=== PATIENT | male | born 1960 | race African-American/Black ===

== ENCOUNTER 2017-11-04 20:35 | Emergency (ER) | payer OTHER ==
[2017-11-04 22:38] LABS: URINE PH (Dip) POC 5.5 (5.0-8.5)
[2017-11-04 22:38] LABS: URINE BLOOD (Dip) POC 2+ (NEGATIVE); URINE GLUCOSE (Dip) POC Negative (NEGATIVE); URINE KETONES (Dip) POC Negative (NEGATIVE); URINE LEUKOCYTE EST (Dip) POC Negative (NEGATIVE); URINE NITRITE (Dip) POC Negative (NEGATIVE); URINE TOTAL PROTEIN POC Negative (NEGATIVE)
[2017-11-04] MEDS: AZITHROMYCIN 250 MG TAB PO (22:47)
[2017-11-04] MEDS: CEFTRIAXONE 250 MG INJ IM (22:48)
== END 2017-11-05 00:24 | disposition left against medical advice (07) ==
LOC: FTE 11-05 00:24
DX: N50.89 Other specified disorders of the male genital organs (principal)
CPT/HCPCS: 81003; 87591; 96372; 99284-25

== ENCOUNTER 2017-12-27 09:08 | Emergency (ER) | payer OTHER ==
[2017-12-27] MEDS: AZITHROMYCIN 250 MG TAB PO (09:39)
[2017-12-27] MEDS ORDERED: LIDOCAINE 1% (MDV) 20 ML INJ (09:43)
[2017-12-27] MEDS: CEFTRIAXONE 250 MG INJ IM (09:48)
[2017-12-27] MEDS: LIDOCAINE 1% (MDV) 10 ML INJ INJ (09:48)
[2017-12-27 09:55] LABS: ADD UMIC YES; UR ASCORBIC ACID NEGATIVE (NEGATIVE); UR BILIRUBIN (Dip) NEGATIVE (NEGATIVE); UR BLOOD (Dip) 1+ mg/dL (NEGATIVE); UR CLARITY CLEAR (CLEAR); UR COLOR YELLOW (YELLOW); UR GLUCOSE (Dip) NEGATIVE (NEGATIVE); UR KETONES (Dip) NEGATIVE (NEGATIVE); UR LEUKOCYTE ESTERASE (Dip) NEGATIVE Leu/ul (NEGATIVE); UR NITRITE (Dip) NEGATIVE (NEGATIVE); UR RBC 6 /HPF (0-5); UR SPECIFIC GRAVITY (Dip) 1.013 (1.003-1.030); UR TOTAL PROTEIN (Dip) NEGATIVE (NEGATIVE); UR UROBILINOGEN (Dip) NEGATIVE (NEGATIVE); UR WBC 0 /HPF (0-5)
== END 2017-12-27 10:20 | disposition home or self-care (01) ==
LOC: FTE 09:08
DX: L73.9 Follicular disorder, unspecified (principal); F17.210 Nicotine dependence, cigarettes, uncomplicated
CPT/HCPCS: 81001; 87086; 87591; 96372; 99284-25

== ENCOUNTER 2018-02-21 08:29 | Emergency (ER) | payer OTHER ==
[2018-02-21] MEDS: CEFTRIAXONE 250 MG INJ IM (10:09)
[2018-02-21] MEDS: AZITHROMYCIN 250 MG TAB PO (10:09)
== END 2018-02-21 11:14 | disposition left against medical advice (07) ==
LOC: FTE 08:29
DX: N34.2 Other urethritis (principal)
CPT/HCPCS: 96372; 99284-25

== ENCOUNTER 2018-05-06 11:31 | Emergency (ER) | payer OTHER ==
[2018-05-06] MEDS: CEFTRIAXONE 250 MG INJ IM (12:42)
[2018-05-06] MEDS: LIDOCAINE 1% (MDV) 20 ML INJ SC (12:43)
[2018-05-06] MEDS: AZITHROMYCIN 250 MG TAB PO (12:43)
== END 2018-05-06 13:15 | disposition home or self-care (01) ==
LOC: FTE 11:31
DX: K64.4 Residual hemorrhoidal skin tags (principal); Q64.39 Other atresia and stenosis of urethra and bladder neck; Z20.2 Contact with and (suspected) exposure to infections with a predominantly sexual mode of transmission; Z87.891 Personal history of nicotine dependence
CPT/HCPCS: 87591; 96372; 99284-25